=== PATIENT | female | born 1970 | race Two or more races ===

== ENCOUNTER → 2017-04-30 | Emergency (ER) | payer OTHER ==
[~2017-04-30] VITALS: Ht 152.4 cm; Wt 66.2 kg
[~2017-04-30] MED LIST: BACITRACIN-P28.35 GM TP; Bacitracin Oint UD TOPIC ONE; EMLA 5gm tube TOPIC ONE; IBUPROFEN400 MG ORAL; Norco 5mg/325mg tab ORAL ONE; Tetanus/Diptheria/Pertussis Vaccine 0.5ml Syr IM ONE
[2017-04-30 14:01] VITALS: BP 126/77
--- NOTE | 2017-04-30 14:19 | Emergency Room Report ---
History of Present Illness General Chief Complaint: Laceration Source: Patient Present Illness HPI 47-year-old female presents to the emergency department complaining of laceration to the right wrist and hand after she had a mechanical slip and fall while carrying glass that shattered. Patient states she does not know when her last tetanus vaccination is she denies taking blood thinning medications. Patient reports that several pieces of glass are still in her palm. Patient reports pain as 8/10 in severity. She denies hitting her head she denies loss of consciousness. Denies numbness tingling or loss of sensation or gross motor movements of the extremities, incontinence of bowel or bladder. Denies CP, Palpitations, LOC, AMS, dizziness, Changes in Vision, Sensation, paresthesias, or a sudden severe headache. Allergies: Coded Allergies: No Known Allergies (Unverified , 04/30/17) Patient History Past Medical History: see triage record Past Surgical History: none Pertinent Family History: none Last Menstrual Period: na Reviewed Nursing Documentation: PMH: Agreed, PSxH: Agreed Nursing Documentation-PMH Past Medical History: No History, Except For Review of Systems All Other Systems: negative except mentioned in HPI Physical Exam Vital Signs Date Time Temp Pulse Resp B/P (MAP) Pulse Ox O2 Delivery O2 Flow Rate FiO2 04/30/17 13:40 97.5 69 18 126/77 98 Room Air Sp02 EP Interpretation: reviewed, normal General Appearance: no apparent distress, alert, GCS 15, non-toxic Head: normocephalic, atraumatic Eyes: bilateral eye normal inspection, bilateral eye PERRL ENT: hearing grossly normal, normal voice Neck: full range of motion Respiratory: chest non-tender, lungs clear, normal breath sounds, speaking full sentences Cardiovascular #1: regular rate, rhythm, normal capillary refill Musculoskeletal: back normal, gait/station normal, normal range of motion, non- tender Neurologic: alert, oriented x3, responsive, motor strength/tone normal, sensory intact, speech normal Skin: normal color, no rash, warm/dry, well hydrated, laceration - avulsion laceration of the right wrist approx 2.5cm in length Medical Decision Making PA Attestation Dr. Nam is my supervising Physician whom patient management has been discussed with. Diagnostic Impression: Primary Impression: Laceration Additional Impression: Right wrist sprain Qualified Codes: S63.501A - Unspecified sprain of right wrist, initial encounter ER Course 47-year-old female presents to the emergency department complaining of laceration to the right wrist and hand after she had a mechanical slip and fall while carrying glass that shattered. Patient states she does not know when her last tetanus vaccination is she denies taking blood thinning medications. Patient reports that several pieces of glass are still in her palm. Patient reports pain as 8/10 in severity. She denies hitting her head she denies loss of consciousness. Denies numbness tingling or loss of sensation or gross motor movements of the extremities, incontinence of bowel or bladder. Denies CP, Palpitations, LOC, AMS, dizziness, Changes in Vision, Sensation, paresthesias, or a sudden severe headache. Ddx considered but are not limited to laceration, tendon injury, cellulitis, amputation Vital signs: are WNL, pt. is afebrile H&PE are most consistent with: avulsion laceration of the right wrist approx 2.5cm in length ORDERS: -X-ray right hand: No radiopaque foreign bodies, no acute pathology ED INTERVENTIONS: -Tetanus vaccine was administered as pt. vaccination status was unknown. - The wound was copiously irrigated with normal saline, and explored for foreign body for which no FB was found. - pt. is anesthetized with EMLA Cream -Bacitracin and sterile dressing is applied. Discussed with patient: That we make every effort to approximate the laceration as best as we can so that scarring will be as cosmetically pleasing as possible with our limited cosmetic skill set in the Emergency dept. Regardless of our best efforts there will be scarring after laceration repair. The extent of scarring is unknown at this time. DISCHARGE: At this time pt. is stable for d/c to home. Will provide printed patient care instructions, and any necessary prescriptions. Care plan and follow up instructions have been discussed with the patient prior to discharge. Other X-Ray Diagnostic Results Other X-Ray Diagnostic Results : X-Ray ordered: Right Hand # of Views/Limited Vs Complete: 3 View Indication: Pain EP Interpretation: Yes CYRUS Xray: Interpretation reviewed, by supervising MD, and agrees with findings. Interpretation: no dislocation, no soft tissue swelling, no fractures, other - no radiopaque fb's Impression: No acute disease Electronically Signed by: Ariana Baxter PA-C Last Vital Signs Date Time Temp Pulse Resp B/P (MAP) Pulse Ox O2 Delivery O2 Flow Rate FiO2 04/30/17 13:40 97.5 69 18 126/77 98 Room Air Disposition: HOME, SELF-CARE Condition: Stable Scripts Ibuprofen* (MOTRIN*) 400 Mg Tablet 400 MG ORAL THREE TIMES A DAY, #30 TAB 0 Refills Prov: Ariana Baxter 04/30/17 Bacitracin/Polymyxin B Sulfate (BACITRACIN-POLYMYXIN OINTMENT) 28.35 Gm Oint...g. 1 APPLIC TP BID, #28.3 GM Prov: Ariana Baxter 04/30/17 Patient Instructions: Nonsutured Laceration Care, Wrist Sprain Additional Instructions: Take medications as directed. Follow up with a Primary Care Provider in 3-5 days, even if your symptoms have resolved. --Please review list of primary care clinics, if you do not already have a primary care provider Return sooner to ED if new symptoms occur, or current symptoms become worse. - Please note that this Emergency Department Report was dictated using [employer] brusher technology software, occasionally this can lead to erroneous entry secondary to interpretation by the dictation equipment. Ariana Baxter Apr 30, 2017 14:18
[2017-04-30 16:04] VITALS: BP 126/77
--- NOTE | 2017-04-30 16:39 | Diagnostic Imaging Report ---
Indications: PAIN, laceration Technique: 3 views of the right hand Comparison: None Findings: No acute fractures. No dislocations. Joint spaces are preserved. No radiopaque foreign body. Normal mineralization. Impression: No acute process
== END | disposition home or self-care (01) ==
LOC: EMR 14:12
DX: S61.511A Laceration without foreign body of right wrist, initial encounter (principal); S63.501A Unspecified sprain of right wrist, initial encounter; W01.0XXA Fall on same level from slipping, tripping and stumbling without subsequent striking against object, initial encounter; Y92.89 Other specified places as the place of occurrence of the external cause; Z23 Encounter for immunization
CPT/HCPCS: 90471; 90715; 99284